=== PATIENT | female | born 1970 | race Two or more races ===

== ENCOUNTER 2023-03-01 06:31 | Observation (INO) | payer SELFPAY ==
[~2023-03-01] VITALS: Ht 157.5 cm; Wt 60.0 kg
[2023-03-01] VITALS (26 sets, daily range): BP systolic 99–116; BP diastolic 54–75; PULSE 66–102; RESP 11–18; TEMP 97.1–98.9; O2SAT 95–100
[~2023-03-01 06:31] MED LIST: ASPI-612 PO; CAL-MAG; CITRACAL; FIBER; FISH OIL; HAIR, SKIN, NAIL; MALTODEXTRIN/FRUCTOSE 0.68 KCAL/ML LIQUID 296ML BOTTLE PO ONE; MULT VIT; PAU D ARCO; RED CLOVER; TIZA-205 PO; TURKEY TAIL; VIT C; ZOLP10TA PO; [UNRECOGNIZED DRUG - OTHER]; [UNRECOGNIZED DRUG - OTHER]; ceFOXitin 2GM-NS 100mL ADDvant 100 ML IV ONE; famotidine 20mg tablet PO ONE; metroNIDAZOLE-Flagyl 500mg/NS 100ML IVPB IV ONE
[2023-03-01] MEDS ORDERED: morphine 4 MG/ML inj SYRINge IV PRN (07:20)
[2023-03-01] MEDS ORDERED: ondansetron/PF 4mg/2ml inj IV PRN ×2 (07:20→12:20)
[2023-03-01] MEDS ORDERED: morphine 2 MG/ML inj. syringe IV PRN (07:20)
[2023-03-01] MEDS ORDERED: ringers solution, lacted 1,000 ML IV SCH (07:20)
[2023-03-01] MEDS ORDERED: labetalol 20mg/4ml (5mg/ml) syringe IV PRN (07:20)
[2023-03-01] MEDS ORDERED: fentaNYL/PF 50MCG/1 ML 2ML syringe IV PRN ×2 (07:20)
[2023-03-01] MEDS ORDERED: hydrALAZINE 20mg/ml inj. IV PRN (07:20)
[2023-03-01] MEDS ORDERED: rocuronium 10mg/ml inj IV ONE ×4 (07:29→10:53)
[2023-03-01] MEDS ORDERED: tobramycin 40mg/ml inj ONE (07:29)
[2023-03-01] MEDS ORDERED: propofol inj 20 ML IV ONE (07:29)
[2023-03-01] MEDS ORDERED: ondansetron/PF 4mg/2ml inj ONE (07:29)
[2023-03-01] MEDS ORDERED: LIDOcaine 1% W/epiNEPHrine 1:100,000 20ml vial ONE (07:29)
[2023-03-01] MEDS ORDERED: LIDOcaine 2% (20mg/ml) 5ml vial ONE ×2 (07:29→10:53)
[2023-03-01] MEDS ORDERED: mineral oil 10ml sterile, topical TP ONE (07:30)
[2023-03-01] MEDS ORDERED: BUPIVAcaine/PF 2.5 mg/ml (0.25%) 30ml vial ONE (07:30)
[2023-03-01] MEDS: ringers solution, lacted 1,000 ML IV SCH ×2 (08:08→17:54)
[2023-03-01] MEDS ORDERED: sevoflurane 250ml liquid IH ONE (08:19)
[2023-03-01] MEDS ORDERED: fentaNYL/PF 50MCG/1 ML 2ML syringe ONE ×2 (08:28→09:19)
[2023-03-01] MEDS ORDERED: midazolam 1 mg/ML 2ml injection ONE (08:28)
[2023-03-01] MEDS ORDERED: acetaminophen 1,000mg/100ml IV 100 ML IV ONE (08:45)
[2023-03-01] MEDS ORDERED: dexamethasone sod phosphate 4mg/ml inj. ONE (08:58)
[2023-03-01] MEDS ORDERED: sugammadex 200mg/2ml injection IV ONE (10:36)
--- NOTE | 2023-03-01 12:12 | NUR ---
Received from OR via HOSPITAL BED, accompanied by Anesthesiologist and report given by PAOLA Anesthesiologist. PATIENT WAKING UP, NO S/S OF PAIN, V/S WNL, SCD ON , PIV 20G RIGHT HAND. MATIAS CATHETER DRAINING CLEAR YELLOW URINE. Addendum: 03/01/23 at 1232 by Odilon Azevedo RN Amended: Links added.
[2023-03-01] MEDS ORDERED: naloxone 0.4 mg/ml inj IV PRN (12:20)
[2023-03-01] MEDS ORDERED: HYDROcodone/acetaminophen 5mg/325mg tablet PO PRN (12:20)
--- NOTE | 2023-03-01 14:37 | NUR ---
PATIENT HAS MET ALL CRITERIA FOR TRANSFER TO ORTHO FLOOR. VSS. DRESSINGS INTACT. BED LOW, CALL LIGHT PRESENT AND 2 RAILS UP. RN PRESENT TO ACCEPT CARE OF PATIENT AND REPORT HAS BEEN CALLED. ALL QUESTIONS ANSWERED TO ACCEPTING RN. Addendum: 03/01/23 at 1504 by Odilon Azevedo RN Amended: Links added.
--- NOTE | 2023-03-01 14:48 | NUR ---
Patient in room . I have received report from tanya andrew in recovery and had the opportunity to ask questions and assume patient care.
[2023-03-01] MEDS ORDERED: acetaminophen 325mg tablet PO PRN (17:35)
[2023-03-01] MEDS: ceFOXitin inj 1,000 MG in normal saline 100ml IV soln 100 ML IV SCH (17:50)
[2023-03-01] MEDS: potassium CL 20mEq in D5-1/2NS 1,000 ML IV SCH (19:00)
--- NOTE | 2023-03-01 19:09 | NUR ---
Problems reprioritized. Patient report given, questions answered & plan of care reviewed with annie valencia rn.
[2023-03-01] MEDS: ketorolac tromethamine 15mg/ml inj. IV PRN (19:10)
[2023-03-01] MEDS ORDERED: polyethylene glycol 3350 17gm powd pack PO SCH (21:00)
[2023-03-01] MEDS ORDERED: psyllium seed 5.8 gm packet (sugar-free) PO SCH (21:00)
[2023-03-01] MEDS: albuterol 2.5 MG/3 ML nebule NEB SCH (22:00)
[2023-03-01] MEDS: docusate sod 100mg capsule PO SCH (22:05)
[2023-03-02] VITALS (8 sets, daily range): BP systolic 98–112; BP diastolic 60–71; PULSE 76–91; RESP 12–18; TEMP 97.1–98.3; O2SAT 96–99
[2023-03-02] MEDS: ceFOXitin inj 1,000 MG in normal saline 100ml IV soln 100 ML IV SCH (00:57)
[2023-03-02] MEDS: potassium CL 20mEq in D5-1/2NS 1,000 ML IV SCH (00:59)
[2023-03-02 06:14] LABS: BASOPHILS # (AUTO) 0.1 X10'3 (0-0.2); BASOPHILS % (AUTO) 0.5 % (0-1); EOSINOPHILS # (AUTO) 0.1 X10'3 (0-0.9); EOSINOPHILS % (AUTO) 0.6 % (0-6); HEMATOCRIT 34.4 % (35.0-45.0); HEMOGLOBIN 11.6 g/dl (12.0-16.0); LYMPHOCYTES # (AUTO) 1.6 X10'3 (1.1-4.8); LYMPHOCYTES % (AUTO) 14.7 % (21-51); MEAN CORPUSCULAR HEMOGLOBIN 31.8 PG (27.0-31.0); MEAN CORPUSCULAR HGB CONC 33.8 g/dL (33.0-36.5); MEAN PLATELET VOLUME 8.7 FL (7.4-10.4); MONOCYTES # (AUTO) 0.7 X10'3 (0-0.9); MONOCYTES % (AUTO) 6.9 % (2-12); NEUTROPHILS # (AUTO) 8.3 X10'3 (1.8-7.7); NEUTROPHILS % (AUTO) 77.3 % (42-75); PLATELET COUNT 201 X10'3 (140-440); RED BLOOD COUNT 3.65 X10'6 (4.20-5.60); RED CELL DISTRIBUTION WIDTH 13.5 % (11.5-14.5); WHITE BLOOD COUNT 10.7 X10'3 (4.5-11.0)
--- NOTE | 2023-03-02 06:20 | NUR ---
Problems reprioritized. Patient report given, questions answered & plan of care reviewed with TYM RN.
[2023-03-02 06:45] LABS: ANION GAP 6 (8-16); BLOOD UREA NITROGEN 9 MG/DL (7-18); BUN/CREATININE RATIO 10.7 (10.0-20.0); CALCIUM 8.5 MG/DL (8.5-10.1); CHLORIDE 108 MMOL/L (99-107); CREATININE 0.84 MG/DL (0.40-0.90); GLUCOSE 120 MG/DL (70-104); POTASSIUM 3.8 MMOL/L (3.5-5.1); SODIUM 140 MMOL/L (135-145); TOTAL CARBON DIOXIDE 25.6 MMOL/L (24-32); eCRCL 62 ML/MIN; eGFR 71 ML/MIN
[2023-03-02] MEDS: albuterol 2.5 MG/3 ML nebule NEB SCH ×3 (07:27→15:00)
[2023-03-02] MEDS: docusate sod 100mg capsule PO SCH (08:43)
[2023-03-02] MEDS: ketorolac tromethamine 15mg/ml inj. IV PRN (11:19)
[2023-03-02] MEDS ORDERED: DOCU100C40 PO (13:39)
[2023-03-02] MEDS ORDERED: psyllium 5.8g sugar-free pkt PO (13:39)
--- NOTE | 2023-03-02 13:47 | NUR ---
PER DR GIBSON PT IS OK TO GO IF HER PAIN IS THE SAME FROM THIS AM AND NOT GETTING WORSE. HE WILL BE PUTTING IN THE DC. PT STATED SHE HAS THE SAME PAIN FROM EARLIER THIS AM WHEN DR SAW HER AND IT IS NOT GETTING WORSE. SHE IS READY TO GO HOME
--- NOTE | 2023-03-02 17:00 | NUR ---
PT IS STABLE FOR DC, IV CANNULA DC BY BREAK NURSE AND SHE WENT OVER ALL DC INFO AND HAD PT SIGN. PT TOOK ALL BELONGINGS WITH HER. SHE WAS WALKED DOWN TO THE [facility] AND LEFT WITH HER SPOUSE KRISTEN PRIVATE VEHICLE.
== END 2023-03-02 16:20 | disposition home or self-care (01) ==
LOC: PAS 06:31 → ORTHO 4S 12:23
PROVIDERS: ADMIT Colon & Rectal Surgery; ATTEND Colon & Rectal Surgery
DX: K62.1 Rectal polyp (principal); K59.00 Constipation, unspecified; J45.909 Unspecified asthma, uncomplicated; G89.29 Other chronic pain; M54.9 Dorsalgia, unspecified; Z79.899 Other long term (current) drug therapy
CPT/HCPCS: 36415; 45390; 80048; 82948; 85025; 94760; 96365; 96366; 96368; 96375; 96376; G0378; J0131; J0694; J1100; J1885; J2250; J2405; J2704; J3010; J3260; J3480; J3490; J7120; 45338; A4402; A4618; A6449; A7000; C1758; C1889